=== PATIENT | male | born 1955 | race Caucasian/White ===

== ENCOUNTER 2018-08-14 06:07 | Day surgery (SDC) | payer OTHER ==
[~2018-08-14 06:07] MED LIST: CIPRO500 MG PO; LOSART PO; NAMENDA PO; NAMENDA10 MG PO; PROTONIX40 MG PO; PROZAC; TOPROL XL50 M1; ULTRACET PO; VALIUM5 MG/M1 PO; [UNRECOGNIZED DRUG - OTHER] PO
[2018-08-14] MEDS ORDERED: ULTRACET PO (11:16)
[2018-08-14] MEDS ORDERED: SURFAK240 M1 PO (11:16)
== END 2018-08-14 15:30 | disposition home or self-care (01) ==
LOC: CIR.AMB 06:07
DX: K40.90 Unilateral inguinal hernia, without obstruction or gangrene, not specified as recurrent (principal); D17.6 Benign lipomatous neoplasm of spermatic cord

== ENCOUNTER → 2020-08-06 | Outpatient (CLI) | payer OTHER ==
[~2020-08-06] MED LIST changes: +SURFAK240 M1 PO
== END | disposition home or self-care (01) ==
LOC: NUCLEAR 11:00
PROVIDERS: ATTEND Internal Medicine
DX: I87.2 Venous insufficiency (chronic) (peripheral) (principal)

== ENCOUNTER 2021-08-04 15:06 | Emergency (ER) | payer OTHER ==
[~2021-08-04] VITALS: Ht 172.7 cm; Wt 80.7 kg
== END 2021-08-04 17:01 | disposition home or self-care (01) ==
LOC: ER 15:06
DX: S61.217A Laceration without foreign body of left little finger without damage to nail, initial encounter (principal); W45.8XXA Other foreign body or object entering through skin, initial encounter; Y93.9 Activity, unspecified; Y92.9 Unspecified place or not applicable; Y99.9 Unspecified external cause status

== ENCOUNTER 2021-08-16 18:17 | Emergency (ER) | payer OTHER ==
[~2021-08-16] VITALS: Ht 175.3 cm; Wt 90.3 kg
== END 2021-08-16 19:09 | disposition home or self-care (01) ==
LOC: ER 18:17
DX: Z48.02 Encounter for removal of sutures (principal)

== ENCOUNTER 2022-12-06 15:14 | Emergency (ER) | payer OTHER ==
[~2022-12-06] VITALS: Ht 177.8 cm; Wt 98.9 kg
[2022-12-07] MEDS ORDERED: ARICEPT10 MG PO (16:21)
[2022-12-07] MEDS ORDERED: NAMENDA10 MG PO (16:21)
== END 2022-12-06 18:35 | disposition home or self-care (01) ==
LOC: ER 15:14
DX: S61.210A Laceration without foreign body of right index finger without damage to nail, initial encounter (principal); W45.8XXA Other foreign body or object entering through skin, initial encounter; Y93.89 Activity, other specified; Y92.89 Other specified places as the place of occurrence of the external cause; Y99.9 Unspecified external cause status; Z88.0 Allergy status to penicillin

== ENCOUNTER 2022-12-07 15:51 | Emergency (ER) | payer OTHER ==
[~2022-12-07] VITALS: Ht 175.3 cm; Wt 98.9 kg
[2022-12-07] MEDS ORDERED: NAMENDA10 MG PO (16:21)
[2022-12-07] MEDS ORDERED: ARICEPT10 MG PO (16:21)
== END 2022-12-07 18:46 | disposition home or self-care (01) ==
LOC: ER 15:51
DX: S61.210A Laceration without foreign body of right index finger without damage to nail, initial encounter (principal); W45.8XXA Other foreign body or object entering through skin, initial encounter; Y93.89 Activity, other specified; Y92.89 Other specified places as the place of occurrence of the external cause; Z88.0 Allergy status to penicillin; I10 Essential (primary) hypertension

== ENCOUNTER 2022-12-28 21:41 | Emergency (ER) | payer OTHER ==
[~2022-12-28] VITALS: Ht 167.6 cm; Wt 104.3 kg
[~2022-12-28 21:41] MED LIST changes: +ARICEPT10 MG PO
== END 2022-12-29 01:58 | disposition home or self-care (01) ==
LOC: ER 21:41
DX: S89.82XA Other specified injuries of left lower leg, initial encounter (principal); W18.39XA Other fall on same level, initial encounter; Y93.89 Activity, other specified; Y92.89 Other specified places as the place of occurrence of the external cause; Z88.0 Allergy status to penicillin

== ENCOUNTER 2022-12-29 11:10 | Outpatient (CLI) | payer OTHER | END 2022-12-29 11:14 | disposition home or self-care (01) | LOC: NUCLEAR 11:10 | PROVIDERS: ATTEND General Practice | DX: M79.605 Pain in left leg (principal) ==

== ENCOUNTER 2023-07-02 08:33 | Emergency (ER) | payer OTHER ==
[~2023-07-02] VITALS: Ht 175.3 cm; Wt 99.8 kg
[2023-07-02 11:54] LABS: HEMATOCRIT 39.3 % (39.0-48.0); HEMOGLOBIN 13.5 g/dL (13-16.00); MEAN CELL VOLUME 88.9 fL (80.0-100.00); MEAN CORPUSCULAR HEMOGLOBIN 30.6 pg (27.00-32.0); MEAN CORPUSCULAR HGB CONC 34.4 g/dl (32.0-36.0); PLATELET COUNT 222 K/uL (150-450); RED BLOOD COUNT 4.43 M/uL (4.00-6.00); RED CELL DISTRIBUTION WIDTH 13.8 % (11.5-14.5)
[2023-07-02 11:54] LABS: URINE APPEARANCE Clear; URINE BILIRRUBIN Negative (NEGATIVE); URINE BLOOD Negative; URINE COLOR Yellow; URINE GLUCOSE Negative (NEGATIVE); URINE LEUKOCYTE Negative; URINE NITRATE Negative; URINE PROTEIN Negative (NEGATIVE); URINE UROBILINOGEN 0.2 E.U./dl
[2023-07-02 12:07] LABS: URINE BACTERIA 1.2 uL (0.0-1933); URINE EPITHELIAL CELLS 0.3 uL (0.0-38.8); URINE WBC 0.1 uL (0.0-23.2)
[2023-07-02 12:20] LABS: INR 1.03; PARTIAL THROMBOPLASTIN TIME 24.4 SECONDS (22.0-34.0); PROTHROMBIN TIME 10.8 SECONDS (9.0-11.5)
[2023-07-02 12:29] LABS: ALBUMIN 3.5 gm/dL (3.4-5.0); BILIRUBIN TOTAL 9.52 mg/dL (0.3-1.2); CALCIUM 9.1 mg/dL (8.5-10.1); CREATININE SERUM 1.12 mg/dL (0.70-1.30); GFR 65.59; GLOBULINA 3.5 G/DL (2.4-3.5); POTASSIUM 3.79 mEq/L (3.5-5.1)
[2023-07-02 12:35] LABS: BILIRUBIN,CONJUGATED 6.58 mg/dL (0.0-0.2); BILIRUBIN,UNCONJUGATED 2.94 mg/dL (0.0-0.6)
== END 2023-07-02 14:46 | disposition home or self-care (01) ==
LOC: ER 08:34
PROVIDERS: Emergency Medicine
DX: R53.81 Other malaise (principal); R17 Unspecified jaundice; Z20.822 Contact with and (suspected) exposure to COVID-19; Z88.0 Allergy status to penicillin
CPT/HCPCS: 36415; 74177; 93005; 99284; Q9965

== ENCOUNTER 2023-08-16 07:03 | Day surgery (SDC) | payer OTHER ==
[2023-08-16] MEDS ORDERED: DIPHENHYDRAMINE HCL 50 MG/ML VIAL 1ML IV ONE (11:30)
[2023-08-16] MEDS ORDERED: MIDAZOLAM HCL 2 MG/2 ML VIAL IV ONE (11:30)
[2023-08-16] MEDS ORDERED: fentaNYL CITRATE 50 MCG/ML AMPUL IV PUSH ONE (11:30)
== END 2023-08-16 13:25 | disposition home or self-care (01) ==
LOC: AMB-ENDOS 07:03
PROVIDERS: ATTEND Colon & Rectal Surgery
DX: K63.5 Polyp of colon (principal); K57.30 Diverticulosis of large intestine without perforation or abscess without bleeding; Z88.0 Allergy status to penicillin

== ENCOUNTER 2025-07-01 09:53 | Emergency (ER) | payer OTHER ==
[~2025-07-01] VITALS: Ht 170.2 cm; Wt 86.2 kg
== END 2025-07-01 15:18 | disposition home or self-care (01) ==
LOC: ER 09:54
DX: I87.2 Venous insufficiency (chronic) (peripheral) (principal); Z88.0 Allergy status to penicillin; E78.00 Pure hypercholesterolemia, unspecified; I10 Essential (primary) hypertension